=== PATIENT | male | born 1980 | race Caucasian/White ===

== ENCOUNTER 2018-04-27 13:45 | Emergency (ER) | payer SELFPAY ==
[2018-04-27] MEDS ORDERED: Sodium Chloride 0.9% 10 ML Syringe FLUSH PRN (14:37)
[2018-04-27] MEDS ORDERED: Sodium Chloride 0.9% 1,000 ML IV STA (14:37)
[2018-04-27] MEDS ORDERED: HYDROmorphone 1 MG/ML Syringe IVPUSH ONE ×2 (14:39→18:29)
--- NOTE | 2018-04-27 15:39 | CR ---
Chest: Portable view of the chest was obtained. Comparison: Prior chest x-ray. Heart size and mediastinum are normal. Lungs are clear. Minimal scoliosis is noted within the spine. Impression: 1. Nothing acute is seen on portable chest x-ray. Diagnostic code #2
[2018-04-27] MEDS ORDERED: Sodium Chloride 0.9% 10 ML Syringe FLUSH ONE (16:12)
[2018-04-27] MEDS ORDERED: Iopamidol 755 Mg/ML 100 ML Bottle IVPUSH ONE (16:12)
--- NOTE | 2018-04-27 16:14 | EDM.PDOC ---
ED HPI GENERAL MEDICAL PROBLEM - General Chief Complaint: Lower Extremity Injury/Pain Stated Complaint: LEG SWELLING, RASH SENT BY [facility] Time Seen by Provider: 04/27/18 14:00 Source of Information: Reports: Patient, Other (Records from provider) History Limitations: Reports: No Limitations - History of Present Illness INITIAL COMMENTS - FREE TEXT/NARRATIVE: The patient presents today with joint pain, leg swelling, chest pain, and RUQ abdominal pain. The patient saw his primary care provider Anuja gifford. She did some labs and she wanted the patient to come to the ER. He came in today. He also has a rash to both legs. He says this all started over a week ago with swelling in his ankles and it progressed up his legs. He then developed a rash on his legs. He also developed pain in his elbows and wrists. He has pain to the RUQ and pain to his chest. The pain is made worse with deep breathing. He has a history of alcohol dependence and he drinks liquor daily. He did drink today because of the pain. He has no history of UT, PE or DVT. He does smoke. The patient did eat about 3 hours before arrival. Onset: Gradual Duration: Week(s): Location: Reports: Chest, Abdomen Quality: Reports: Sharp Severity: Moderate Improves with: Reports: Immobilization Worsens with: Reports: Breathing Associated Symptoms: Reports: Chest Pain. Denies: Cough, Fever/Chills, Headaches, Nausea/Vomiting, Shortness of Breath Treatments CLINICAL SCIENCE CONSULTANT: Reports: Other Medication(s) Bilateral Leg Pain Score (Numeric/FACES): 9 - Related Data Allergies Allergy/AdvReac Type Severity Reaction Status Date / Time No Known Allergies Allergy Verified 04/27/18 14:04 Home Meds: Home Meds Allopurinol [Zyloprim] 04/27/18 [History] Folic Acid 1 mg PO DAILY 04/27/18 [History] Hydrocodone/Acetaminophen [Hydrocodon-Acetaminophen 5-325] 1 - 2 each PO Q6HR PRN #12 tablet 04/27/18 [Rx] Ibuprofen 600 mg PO BID 04/27/18 [History] Omeprazole 40 mg PO DAILY 04/27/18 [History] predniSONE [Prednisone] 40 mg PO DAILY #10 tablet 04/27/18 [Rx] Past Medical History - Past Health History Medical/Surgical History: Denies Medical/Surgical History Gastrointestinal History: Reports: GERD Musculoskeletal History: Reports: Gout Psychiatric History: Reports: Addiction, Anxiety Social & Family History - Family History Family Medical History: Noncontributory - Tobacco Use Smoking Status *Q: Current Every Day Smoker Years of Tobacco use: 20 Packs/Tins Daily: 0.5 Used Tobacco, but Quit: No - Caffeine Use Caffeine Use: Reports: None - Alcohol Use Date of Last Drink: 04/27/18 Time of Last Drink: 12:30 - Recreational Drug Use Recreational Drug Use: No Review of Systems - Review of Systems Review Of Systems: See Below Constitutional: Reports: No Symptoms Eyes: Reports: No Symptoms Ears: Reports: No Symptoms Nose: Reports: No Symptoms Mouth/Throat: Reports: No Symptoms Respiratory: Reports: No Symptoms Cardiovascular: Reports: Chest Pain GI/Abdominal: Reports: Abdominal Pain Genitourinary: Reports: No Symptoms Musculoskeletal: Reports: Joint Pain (Generalized) ED EXAM, GENERAL - Physical Exam Exam: See Below Exam Limited By: No Limitations General Appearance: Alert, No Apparent Distress Ears: Normal External Exam Nose: Normal Inspection Head: Atraumatic, Normocephalic Neck: Normal Inspection Respiratory/Chest: No Respiratory Distress, Lungs Clear, Normal Breath Sounds Cardiovascular: Regular Rate, Rhythm, No Edema, No Murmur GI/Abdominal: Soft, No Organomegaly, No Mass, Tender (Moderate tenderness to the RUQ) Back Exam: Normal Inspection Extremities: Other (Edema to both legs with pain upon palpation to his ankles and knees. He also has some pain upon palpatio to both wrists and elbows.) EKG INTERPRETATION EKG Date: 04/27/18 Time: 14:59 Rhythm: Other (Sinus tachycardia) Rate (Beats/Min): 115 [place]: Normal P-Wave: Present QRS: Normal ST-T: Normal QT: Prolonged Course - Vital Signs Last Recorded V/S: Last Vital Signs Temp 97.8 F 04/27/18 13:54 Pulse 122 H 04/27/18 13:54 Resp 14 04/27/18 13:54 BP 106/73 04/27/18 13:54 Pulse Ox 99 04/27/18 13:54 - Orders/Labs/Meds Orders: Active Orders 24 hr Category Date Time Status EKG Documentation Completion [RC] STAT Care 04/27/18 14:37 Active Peripheral IV Care [RC] . DIRECTED Care 04/27/18 14:38 Active Sodium Chloride 0.9% [Normal Saline] 100 ml Med 04/27/18 16:15 Active IV ASDIRECTED Sodium Chloride 0.9% [Saline Flush] Med 04/27/18 14:37 Active 10 ml FLUSH ASDIRECTED PRN Peripheral IV Insertion Adult [OM.PC] Stat Oth 04/27/18 14:37 Ordered Medication Orders Sodium Chloride (Normal Saline) 100 mls @ 60 mls/hr IV ASDIRECTED CARLOS Last Admin: 04/27/18 16:27 Dose: 60 mls/hr Sodium Chloride (Saline Flush) 10 ml FLUSH ASDIRECTED PRN PRN Reason: Keep Vein Open Last Admin: 04/27/18 15:09 Dose: 10 ml Labs: Laboratory Tests 04/27/18 04/27/18 04/27/18 Range/Units 15:00 15:00 15:00 WBC 4.92 (4.23-9.07) K/mm3 RBC 2.44 L (4.63-6.08) M/mm3 Hgb 10.0 L (13.7-17.5) gm/L Hct 29.0 L (40.1-51.0) % MCV 118.9 H (79.0-92.2) fl MCH 41.0 H (25.7-32.2) pg MCHC 34.5 (32.2-35.5) g/dl RDW Std Deviation 67.6 H (35.1-43.9) fL Plt Count 118 L (163-337) K/mm3 MPV 10.7 (9.4-12.3) fl Neut % (Auto) 60.3 (34.0-67.9) % Lymph % (Auto) 26.6 (21.8-53.1) % [place] % (Auto) 9.3 (5.3-12.2) % Eos % (Auto) 3.0 (0.8-7.0) Baso % (Auto) 0.6 (0.1-1.2) % Neut # (Auto) 2.96 (1.78-5.38) K/mm3 Lymph # (Auto) 1.31 L (1.32-3.57) K/mm3 [place] # (Auto) 0.46 (0.30-0.82) K/mm3 Eos # (Auto) 0.15 (0.04-0.54) K/mm3 Baso # (Auto) 0.03 (0.01-0.08) K/mm3 Manual Slide Review Abnormal smear ESR (0-15) mm/hr PT (9.5-12.1) SECONDS INR APTT (24-31) SECONDS D-Dimer, Quantitative 3.57 H (0.19-0.50) mg/L Sodium 140 (136-145) mEq/L Potassium 3.5 (3.5-5.1) mEq/L Chloride 102 (98-107) mEq/L Carbon Dioxide 27 (21-32) mEq/L Anion Gap 14.5 (5-15) BUN 4 L (7-18) mg/dL Creatinine 0.5 L (0.7-1.3) mg/dL Est Cr Clr Drug Dosing 151.20 mL/min Estimated GFR (MDRD) > 60 (>60) mL/min BUN/Creatinine Ratio 8.0 L (14-18) Glucose 96 (74-106) mg/dL Calcium 7.9 L (8.5-10.1) mg/dL Magnesium 1.4 L (1.8-2.4) mg/dl Total Bilirubin 1.3 H (0.2-1.0) mg/dL GGT 523 H (15-85) U/L AST 108 H (15-37) U/L ALT 30 (16-63) U/L Alkaline Phosphatase 197 H (46-116) U/L Ammonia (11-32) umol/L Troponin I < 0.017 (0.00-0.056) ng/mL C-Reactive Protein 1.7 H* (<1.0) mg/dL Total Protein 6.1 L (6.4-8.2) g/dl Albumin 2.6 L (3.4-5.0) g/dl Globulin 3.5 gm/dL Albumin/Globulin Ratio 0.7 L (1-2) Lipase 155 (73-393) U/L Urine Opiates Screen (NOUUXQ=947) Ur Buprenorphine Scrn (CUTOFF=10) Ur Oxycodone Screen (KQN8JO=573) Urine Methadone Screen (TYO5RS=074) Ur Propoxyphene Screen (PKNWEH=617) Ur Barbiturates Screen (CMPAMR=258) Ur Tricyclics Screen (XFBMDK=678) Ur Phencyclidine Scrn (CUTOFF=25) Ur Amphetamine Screen (IAHISF=942) U Methamphetamines Scrn (UPUSJQ=344) U Benzodiazepines Scrn (VLRSTO=803) U Cocaine Metab Screen (VBKADR=961) U Marijuana (THC) Screen (CUTOFF=50) Ethyl Alcohol 0.19 (0.00) gm% Rheumatoid Factor Scrn (NEGATIVE) 04/27/18 04/27/18 04/27/18 Range/Units 15:00 15:00 15:00 WBC (4.23-9.07) K/mm3 RBC (4.63-6.08) M/mm3 Hgb (13.7-17.5) gm/L Hct (40.1-51.0) % MCV (79.0-92.2) fl MCH (25.7-32.2) pg MCHC (32.2-35.5) g/dl RDW Std Deviation (35.1-43.9) fL Plt Count (163-337) K/mm3 MPV (9.4-12.3) fl Neut % (Auto) (34.0-67.9) % Lymph % (Auto) (21.8-53.1) % [place] % (Auto) (5.3-12.2) % Eos % (Auto) (0.8-7.0) Baso % (Auto) (0.1-1.2) % Neut # (Auto) (1.78-5.38) K/mm3 Lymph # (Auto) (1.32-3.57) K/mm3 [place] # (Auto) (0.30-0.82) K/mm3 Eos # (Auto) (0.04-0.54) K/mm3 Baso # (Auto) (0.01-0.08) K/mm3 Manual Slide Review ESR (0-15) mm/hr PT 11.4 (9.5-12.1) SECONDS INR 1.05 APTT 27 (24-31) SECONDS D-Dimer, Quantitative (0.19-0.50) mg/L Sodium (136-145) mEq/L Potassium (3.5-5.1) mEq/L Chloride (98-107) mEq/L Carbon Dioxide (21-32) mEq/L Anion Gap (5-15) BUN (7-18) mg/dL Creatinine (0.7-1.3) mg/dL Est Cr Clr Drug Dosing mL/min Estimated GFR (MDRD) (>60) mL/min BUN/Creatinine Ratio (14-18) Glucose (74-106) mg/dL Calcium (8.5-10.1) mg/dL Magnesium (1.8-2.4) mg/dl Total Bilirubin (0.2-1.0) mg/dL GGT (15-85) U/L AST (15-37) U/L ALT (16-63) U/L Alkaline Phosphatase (46-116) U/L Ammonia (11-32) umol/L Troponin I (0.00-0.056) ng/mL C-Reactive Protein (<1.0) mg/dL Total Protein (6.4-8.2) g/dl Albumin (3.4-5.0) g/dl Globulin gm/dL Albumin/Globulin Ratio (1-2) Lipase (73-393) U/L Urine Opiates Screen (QOHXZB=193) Ur Buprenorphine Scrn (CUTOFF=10) Ur Oxycodone Screen (WQG4FK=347) Urine Methadone Screen (FGP5TR=795) Ur Propoxyphene Screen (VSGMKT=581) Ur Barbiturates Screen (ZIXEHV=938) Ur Tricyclics Screen (HQXPZH=428) Ur Phencyclidine Scrn (CUTOFF=25) Ur Amphetamine Screen (SXNDAA=612) U Methamphetamines Scrn (BDKQBR=979) U Benzodiazepines Scrn (UZIIKI=477) U Cocaine Metab Screen (LFPHCC=838) U Marijuana (THC) Screen (CUTOFF=50) Ethyl Alcohol (0.00) gm% Rheumatoid Factor Scrn Negative (NEGATIVE) 04/27/18 04/27/18 04/27/18 Range/Units 15:00 15:00 17:05 WBC (4.23-9.07) K/mm3 RBC (4.63-6.08) M/mm3 Hgb (13.7-17.5) gm/L Hct (40.1-51.0) % MCV (79.0-92.2) fl MCH (25.7-32.2) pg MCHC (32.2-35.5) g/dl RDW Std Deviation (35.1-43.9) fL Plt Count (163-337) K/mm3 MPV (9.4-12.3) fl Neut % (Auto) (34.0-67.9) % Lymph % (Auto) (21.8-53.1) % [place] % (Auto) (5.3-12.2) % Eos % (Auto) (0.8-7.0) Baso % (Auto) (0.1-1.2) % Neut # (Auto) (1.78-5.38) K/mm3 Lymph # (Auto) (1.32-3.57) K/mm3 [place] # (Auto) (0.30-0.82) K/mm3 Eos # (Auto) (0.04-0.54) K/mm3 Baso # (Auto) (0.01-0.08) K/mm3 Manual Slide Review ESR 39 H (0-15) mm/hr PT (9.5-12.1) SECONDS INR APTT (24-31) SECONDS D-Dimer, Quantitative (0.19-0.50) mg/L Sodium (136-145) mEq/L Potassium (3.5-5.1) mEq/L Chloride (98-107) mEq/L Carbon Dioxide (21-32) mEq/L Anion Gap (5-15) BUN (7-18) mg/dL Creatinine (0.7-1.3) mg/dL Est Cr Clr Drug Dosing mL/min Estimated GFR (MDRD) (>60) mL/min BUN/Creatinine Ratio (14-18) Glucose (74-106) mg/dL Calcium (8.5-10.1) mg/dL Magnesium (1.8-2.4) mg/dl Total Bilirubin (0.2-1.0) mg/dL GGT (15-85) U/L AST (15-37) U/L ALT (16-63) U/L Alkaline Phosphatase (46-116) U/L Ammonia 43 H (11-32) umol/L Troponin I (0.00-0.056) ng/mL C-Reactive Protein (<1.0) mg/dL Total Protein (6.4-8.2) g/dl Albumin (3.4-5.0) g/dl Globulin gm/dL Albumin/Globulin Ratio (1-2) Lipase (73-393) U/L Urine Opiates Screen Presumptive positive H (VGJBDC=002) Ur Buprenorphine Scrn Negative (CUTOFF=10) Ur Oxycodone Screen Negative (GJG2VH=762) Urine Methadone Screen Negative (ZZU2IO=630) Ur Propoxyphene Screen Negative (USOWZI=595) Ur Barbiturates Screen Negative (NPNQKO=915) Ur Tricyclics Screen Negative (MBDKRQ=961) Ur Phencyclidine Scrn Negative (CUTOFF=25) Ur Amphetamine Screen Negative (GFKOFL=329) U Methamphetamines Scrn Negative (MCFDBY=366) U Benzodiazepines Scrn Negative (BROBET=105) U Cocaine Metab Screen Negative (TXFKMW=654) U Marijuana (THC) Screen Presumptive positive H (CUTOFF=50) Ethyl Alcohol (0.00) gm% Rheumatoid Factor Scrn (NEGATIVE) Meds: Medications Generic Name Dose Route Start Last Admin Trade Name Freq PRN Reason Stop Dose Admin Sodium Chloride 100 mls @ 60 mls/hr 04/27/18 16:15 04/27/18 16:27 Normal Saline IV 60 mls/hr ASDIRECTED CARLOS Administration Sodium Chloride 10 ml 04/27/18 14:37 04/27/18 15:09 Saline Flush FLUSH 10 ml ASDIRECTED PRN Administration Keep Vein Open Discontinued Medications Generic Name Dose Route Start Last Admin Trade Name Freq PRN Reason Stop Dose Admin Hydromorphone HCl 1 mg 04/27/18 14:39 04/27/18 15:09 Dilaudid IVPUSH 04/27/18 14:40 1 mg ONETIME ONE Administration Sodium Chloride 1,000 mls @ 1,000 mls/hr 04/27/18 14:37 04/27/18 15:08 Normal Saline IV 04/27/18 15:36 1,000 mls/hr .BOLUS STA Administration Iopamidol 100 ml 04/27/18 16:12 04/27/18 16:27 Isovue-370 (76%) IVPUSH 04/27/18 16:13 100 ml ONETIME ONE Administration Sodium Chloride 10 ml 04/27/18 16:12 04/27/18 16:27 Saline Flush FLUSH 04/27/18 16:13 10 ml ONETIME ONE Administration - Re-Assessments/Exams Free Text/Narrative Re-Assessment/Exam: 04/27/18 16:15 I ordered an IV NS 1L bolus, EKG, CXR, labs and some dilaudid for pain. His EKG shows a sinus tachycardia with no acute changes. 04/27/18 16:18 His WBC was normal. His Hgb was low at 10. His platelets are low at 118. His ESR was elevated at 39. His D-dimer is elevated at 3.57. His PT and PTT were normal. Her mag was low at 1.4. His total bili was elevated slightly at 1.3. He GGT was elevated at 523. His AST was elevated at 108. His ALK Phos is elevated at 197. His ammonia is elevated at 43. His troponin is negative. His CRP is elevated at 1.7. His lipase is normal. His ETOH was elevated at 0.19. His RF is negative. I have ordered a CT angio of his chest because of the chest pain and elevated D-dimer. 04/27/18 18:[address] shows no findings of PE. Very slightly ectatic ascending aorta with no findings of aortic dissection. Multiple small nodules within both sides of the chest most likely due to granulomatous disease. Fatty infiltration within the liver. I ordered an US that shows sludge within the gallbladder with gravel. No shadowing are seen. No gallbladder wall thickening or biliary duct dilatation is seen. Small amount of pericholecystic fluid is seen of uncertain etiology. Fatty infiltration within the liver. Obscured pancreas from bowel gas. I feel has has gout and liver disease. I will get him on some prednisone and something for pain and I will will have him follow up with Anuja Espinosa. If his gallbladder gives him trouble he may need to have that removed. Departure - Departure Time of Disposition: 18:30 Disposition: Home, Self-Care 01 Condition: Good Clinical Impression: Alcohol liver damage, Rash Alcohol intoxication Qualifiers: Complication of substance-induced condition: uncomplicated Qualified Code(s): F10.920 - Alcohol use, unspecified with intoxication, uncomplicated Gout Qualifiers: Gout site: multiple sites Gout etiology: other secondary cause Chronicity: chronic Presence of tophus: without tophus Qualified Code(s): M1A.49X0 - Other secondary chronic gout, multiple sites, without tophus (tophi) - Discharge Information *PRESCRIPTION DRUG MONITORING PROGRAM REVIEWED*: No *COPY OF PRESCRIPTION DRUG MONITORING REPORT IN PATIENT AIDEE: No Prescriptions: Hydrocodone/Acetaminophen [Hydrocodon-Acetaminophen 5-325] 1 - 2 each PO Q6HR PRN #12 tablet PRN Reason: Pain predniSONE [Prednisone] 40 mg PO DAILY #10 tablet Referrals: Roscoe Szymanski DO [Primary Care Provider] - Forms: ED Department Discharge Additional Instructions: Take the prednisone daily for 5 days. Take the hydrocodone as needed for pain every 6 hours. Follow up with your doctor if your gallbladder give you trouble. Try to avoid fried fatty food. Call [facility] at [phone] to get some help with stopping drinking. The alcohol is hurting your liver and causing swelling and a rash. - My Orders Last 24 Hours: My Active Orders 04/27/18 14:37 EKG Documentation Completion [RC] STAT Sodium Chloride 0.9% [Saline Flush] 10 ml FLUSH ASDIRECTED PRN Peripheral IV Insertion Adult [OM.PC] Stat 04/27/18 14:38 Peripheral IV Care [RC] . DIRECTED 04/27/18 16:15 Sodium Chloride 0.9% [Normal Saline] 100 ml IV ASDIRECTED - Assessment/Plan Last 24 Hours: My Active Orders 04/27/18 14:37 EKG Documentation Completion [RC] STAT Sodium Chloride 0.9% [Saline Flush] 10 ml FLUSH ASDIRECTED PRN Peripheral IV Insertion Adult [OM.PC] Stat 04/27/18 14:38 Peripheral IV Care [RC] . DIRECTED 04/27/18 16:15 Sodium Chloride 0.9% [Normal Saline] 100 ml IV ASDIRECTED
[2018-04-27] MEDS ORDERED: Sodium Chloride 0.9% 100 ML IV SCH (16:15)
--- NOTE | 2018-04-27 16:51 | CT ---
CT chest Technique: Multiple axial sections through the chest were obtained. Intravenous contrast was utilized. Study has been performed as a pulmonary angiogram protocol. Comparison: Prior chest CT is not available. Findings: Ascending aorta measures 3.1 cm and descending aorta measures 2.2 cm. No dissection is seen. Pulmonary arteries are well-opacified. No filling defects are seen within the pulmonary arteries to indicate pulmonary embolism. Mediastinum and hilar regions show no adenopathy. No pericardial thickening is seen. Diffuse fatty infiltration is noted throughout the liver. Multiple small nodules are noted within both sides of the chest most likely due to granulomatous disease. Lungs otherwise are clear with no acute parenchymal change. No pleural effusions or pneumothorax is seen. Bone window settings were reviewed which shows no acute osseous abnormality. Impression: 1. No findings of pulmonary embolism. 2. Very slightly ectatic ascending aorta with no findings of aortic dissection. 3. Multiple small nodules within both sides of the chest most likely due to old granulomatous disease. 4. Fatty infiltration within the liver. Diagnostic code #2
--- NOTE | 2018-04-27 18:08 | US ---
Limited abdominal ultrasound: Multiple real-time images of the upper right abdomen were obtained. Comparison: No prior abdominal ultrasound. Liver is echogenic. This is compatible with fatty infiltration as seen on recent chest CT performed on the same day (4:21 PM). Sludge and gravel appear to be present within the gallbladder. No shadowing gallstones are appreciated. There is a small amount of pericholecystic fluid being seen. Gallbladder wall does not appear to be thickened and etiology of the fluid is not appreciated. No biliary duct dilatation is seen. Right kidney shows no hydronephrosis or mass and has a length of 9.0 cm. Pancreas is obscured from bowel gas. Portal vein shows normal hepatopedal flow. Impression: 1. Sludge within the gallbladder with gravel. No shadowing gallstones are seen. No gallbladder wall thickening or biliary duct dilatation is seen. Small amount of pericholecystic fluid is seen of uncertain etiology. 2. Fatty infiltration within the liver. 3. Obscured pancreas from bowel gas. Diagnostic code #3
== END 2018-04-27 18:50 | disposition home or self-care (01) ==
LOC: JD.ED 13:45
DX: K70.9 Alcoholic liver disease, unspecified (principal); R21 Rash and other nonspecific skin eruption; M1A.49X0 Other secondary chronic gout, multiple sites, without tophus (tophi); Y90.6 Blood alcohol level of 120-199 mg/100 ml; K21.9 Gastro-esophageal reflux disease without esophagitis; F41.9 Anxiety disorder, unspecified; F17.210 Nicotine dependence, cigarettes, uncomplicated; Z79.899 Other long term (current) drug therapy
CPT/HCPCS: 36415; 71045; 71275; 76705; 80053; 80306; 82140; 82977; 83690; 83735; 84484; 85025; 85379; 85610; 85652; 85730; 86140; 86430; 93005; 96361; 96374; 96376; 99284; G0480; J1170; J7030; J7040; Q9967